=== PATIENT | female | born 1950 | race Caucasian/White ===

== ENCOUNTER 2017-06-24 10:40 | Outpatient (CLI) | payer OTHER | END 2017-06-24 15:36 | disposition home or self-care (01) | LOC: RAD 10:40 | DX: M70.61 Trochanteric bursitis, right hip (principal) ==

== ENCOUNTER 2017-07-20 10:30 | Outpatient (CLI) | payer OTHER | END 2017-07-20 14:06 | disposition home or self-care (01) | LOC: MRI 10:30 | DX: M54.17 Radiculopathy, lumbosacral region (principal) | CPT/HCPCS: 72148 ==

== ENCOUNTER → 2017-08-03 | Outpatient (CLI) | payer OTHER | END | disposition home or self-care (01) | LOC: TOM 15:00 | DX: I80.201 Phlebitis and thrombophlebitis of unspecified deep vessels of right lower extremity (principal) | CPT/HCPCS: 74178; Q9965 ==

== ENCOUNTER → 2017-08-03 | Outpatient (CLI) | payer OTHER | END | disposition home or self-care (01) | LOC: TOM 10:15 → NUCLEAR 13:00 → TOM 13:24 | DX: I83.10 Varicose veins of unspecified lower extremity with inflammation (principal) ==